=== PATIENT | female | born 1995 | race Caucasian/White ===

== ENCOUNTER 2024-11-13 12:00 | Emergency (ER) | payer BC, SELFPAY ==
[2024-11-13 12:23] VITALS: BP 156/100; PULSE 78; TEMP 37; O2SAT 97; BMI 36.5
--- NOTE | 2024-11-13 13:13 | CT_ITS ---
The [address] [address] Patient Name: ADELE ZAMBRANO MRN: [id number] date: 1995 Sex: F Assigned Patient Location: ER Current Patient Location: ER Accession/Order Number: [id number] Exam Date: 11/13/2024 13:47 Report Date: 11/13/2024 13:49 At the request of: BRO ZHANG NP Procedure: CT abdomen pelvis w con CT ABDOMEN AND PELVIS WITH INTRAVENOUS CONTRAST: CLINICAL HISTORY: epigastric pain COMPARISON: None TECHNIQUE: Spiral images were obtained through the abdomen and pelvis following the administration of intravenous contrast. This CT exam was performed using one or more following dose reduction techniques: Automated exposure control, adjustment of the mA and/or kV according to patient size, or use of iterative reconstruction technique. FINDINGS: Lung Bases: [Lung bases are clear.] Organs:Gallbladder wall thickening and question edema noted. Otherwise the adrenals, kidneys, pancreas, and spleen are unremarkable.[ GI: Mild retained stool. No bowel obstruction. Appendix unremarkable. Minimal background colonic diverticulosis.[ Pelvis:[Uterus unremarkable for age. No adnexal mass. Bladder is unremarkable.] Peritoneum/Retroperitoneum:No free air or free fluid. Aorta normal in caliber. Abd wall/Bones:Tiny fat-containing abdominal hernia. Osseous structures unremarkable. No suspicious osseous lesion.[ CT/CT abdomen pelvis w con IMPRESSION: CT findings worrisome for acute cholecystitis. Please correlate with exam findings. Impression dictated by: Zoran Franco M.D. 11/13/2024 1:49 PM Dictation Location: [place] [address] Electronically authenticated by: [id number] Y Date: 11/13/2024 13:49
--- NOTE | 2024-11-13 13:18 | ED_ITS ---
HPI HPI - General Adult General Chief complaint: Abdominal Pain Stated complaint: ABDOMINAL PAIN Time Seen by Provider: 11/13/24 12:26 Source: patient Mode of arrival: walk-in Limitations: no limitations History of Present Illness HPI narrative: The patient is a 29-year-old female who presents to the emergency department today for evaluation concerns for epigastric discomfort. She endorses this has been intermittently ongoing over the past 6 months and reports over the past few days it has been progressively worse. She denies any symptoms of nausea/vomiting. No diarrhea. She currently endorses her pain to be mild. She mention she has used an [id number] analgesics with minimal improvement. She has any urinary symptoms or back/flank pain. She mentions the symptoms are not associated with eating or after meals. She denies any chest pain or shortness of breath. She denies any significant medical or surgical history otherwise. Related Data Home Medications ?Medication ?Instructions ?Recorded ?Confirmed No Known Home Medications 11/13/2406/09 Allergies Allergy/AdvReac Type Severity Reaction Status Date / Time No Known Drug Allergies Allergy Verified 11/13/24 12:23 Review of Systems ROS Status of ROS 10 or more systems reviewed and unremark able except as noted in history and below PFSH PFSH Social History Little interest or pleasure in doing things: not at all Feeling down, depressed, or hopeless: not at all Exam Narrative Exam Narrative: Constituational: Awake/ alert, no apparent distress, well hydrated HENMT: normocephalic, external ears normal, moist oral mucous membranes and oropharynx normal Eyes: EOMI and conjunctivae normal Neck: ROM intact Chest: inspection of chest normal Respiratory: Normal respiratory effort, clear to auscultation bilaterally Cardio: regular rate and regular rhythm GI: + Discomfort to palpation over epigastric region, abdomen is otherwise soft to palpation and non-tender Back: nontender MSK: ROM intact, +NVI Skin: no rashes or petechiae Neuro: no focal deficits Psych: mental status grossly normal Constitutional Vital Signs, click to edit/add: Last Vital Signs Temp 98.6 F 11/13/24 12:23 Pulse 78 11/13/24 12:23 Resp 18 11/13/24 12:23 BP 156/100 H 11/13/24 12:23 Pulse Ox 97 11/13/24 12:23 O2 Del Method Room Air 11/13/24 12:23 Course Vital Signs Vital signs: Vital Signs Temperature 98.6 F 11/13/24 12:23 Pulse Rate 78 11/13/24 12:23 Respiratory Rate 18 11/13/24 12:23 Blood Pressure 156/100 H 11/13/24 12:23 Pulse Oximetry 97 11/13/24 12:23 Oxygen Delivery Method Room Air 11/13/24 12:23 Temperature 98.6 F 11/13/24 12:23 Pulse Rate 78 11/13/24 12:23 Respiratory Rate 18 11/13/24 12:23 Blood Pressure 156/100 H 11/13/24 12:23 Pulse Oximetry 97 11/13/24 12:23 Oxygen Delivery Method Room Air 11/13/24 12:23 Medical Decision Making MDM Narrative Medical decision making narrative: Patient is a well-appearing 29-year-old female who presented to the ER today for evaluation concerns for mostly epigastric discomfort. Initial examination and vital signs overall stable. No acute abdominal findings on exam. Leukocytosis, anemia, thrombocytopenia. Electrolytes including renal and hepatic function stable. Normal lipase. CT imaging does show acute cholecystitis. Measures of IVPB Zosyn. Initially patient's symptoms seemed to correlate more with possible GERD and she received a GI cocktail and on reevaluation she reported some mild improvement in overall condition. Patient was offered analgesic medication multiple times and declined as she mentioned her pain was not that significant. Did discuss patient's condition [id number] -> advised that if patient stable may consider discharge home and follow-up outpatient as there was no availability for transfer had surgery for today. In discussing this with the patient she was offered supportive measures for discharge home with Augmentin and Mason with close follow-up with general surgery outpatient to discuss cholecystectomy. Patient is concerned that this pain has been ongoing for the past 6 months and has not improved. She would like to be admitted to the hospital for further care. Did subsequently discuss patient's condition with general surgeon at [facility] Dr. Garcia [id number] -> patient is excepted for transfer. Discussed the above findings and recommendations with the patient. She did she is agreeable with the plan to transfer to [facility] by private vehicle for further care of the above. Medical Records Medical records reviewed: Yes I reviewed the patient's medical records Lab Data Lab results reviewed: Yes I reviewed the patient's lab results Labs: Lab Results 11/13/24 11/13/24 Range/Units 12:28 13:48 WBC 7.7 (4.0-11.0) 10^3/uL RBC 4.83 (4.20-5.40) 10^6/uL Hgb 14.4 (12.0-16.0) g/dL Hct 41.4 (36.0-48.0) % MCV 85.7 (81.0-99.0) fL MCH 29.8 (26.7-34.0) pg MCHC 34.8 (29.9-35.2) g/dL RDW 11.8 (11.0-15.0) % Plt Count 225 (150-450) 10^3/uL MPV 11.3 (9.5-13.5) fL Neut % (Auto) 69.9 (43.0-75.0) % Lymph % (Auto) 18.4 L (20.5-60.0) % [place] % (Auto) 9.3 (1.7-12.0) % Eos % (Auto) 1.3 (0.9-7.0) % Baso % (Auto) 0.8 (0.2-2.0) % Neut # (Auto) 5.4 (1.4-6.5) 10^3/uL Lymph # (Auto) 1.4 (1.2-3.8) 10^3/uL [place] # (Auto) 0.7 (0.3-0.8) 10^3/uL Eos # (Auto) 0.1 (0.0-0.7) 10^3/uL Baso # (Auto) 0.1 (0.0-0.1) 10^3/uL Abs Immat Gran (auto) 0.02 (0.00-0.03) 10^3/uL Imm/Tot Granulo (auto) 0.3 (0.0-0.5) % Sodium 137 (136-145) mmol/L Potassium 3.8 (3.5-5.1) mmol/L Chloride 102 (98-107) mmol/L Carbon Dioxide 26.0 (21.0-32.0) mmol/L Anion Gap 12.8 BUN 10.0 (7.0-18.0) mg/dL Creatinine 0.67 (0.55-1.02) mg/dL Est GFR ( Amer) >60 (>=60 mL/min/1.73m^2) Est GFR (Non-Af Amer) >60 (>=60 mL/min/1.73m^2) BUN/Creatinine Ratio 14.9 Glucose 85 (74-106) mg/dL Calcium 8.9 (8.5-10.1) mg/dL Total Bilirubin 0.8 (0.2-1.0) mg/dL AST 30 (15-37) U/L ALT 67 H (14-59) U/L Alkaline Phosphatase 86 (46-116) U/L Total Protein 7.2 (6.4-8.2) g/dL Albumin 3.4 (3.4-5.0) g/dL Globulin 3.8 g/dL Albumin/Globulin Ratio 0.9 Lipase 19.0 (16.0-77.0) U/L Serum HCG, Qual Negative (NEGATIVE) Imaging Data CT scan - abdomen: Attestation: I have reviewed the pertinent imaging results. Radiologist's impression: ITS Impressions Abdomen/Pelvis CT 11/13/24 13:13 IMPRESSION: CT findings worrisome for acute cholecystitis. Please correlate with exam findings. Impression dictated by: Zoran Franco M.D. 11/13/2024 1:49 PM Dictation Location: [place] [address] Electronically authenticated by: [id number] Y Date: 11/13/2024 13:49 Discharge Plan Discharge Chief Complaint: Abdominal Pain Clinical Impression: Acute cholecystitis Patient Disposition: [facility]
[2024-11-13 13:24] LABS: Hematocrit 41.4 % (36.0-48.0); Hemoglobin 14.4 g/dL (12.0-16.0); Immature Granulocytes Abs Auto 0.02 10^3/uL (0.00-0.03); Immature Granulocytes Pct Auto 0.3 % (0.0-0.5); Lymphocytes Absolute Auto 1.4 10^3/uL (1.2-3.8); Mean Corpuscular HGB Conc 34.8 g/dL (29.9-35.2); Mean Corpuscular Hemoglobin 29.8 pg (26.7-34.0); Mean Corpuscular Volume 85.7 fL (81.0-99.0); Platelet Count 225 10^3/uL (150-450); Red Blood Count 4.83 10^6/uL (4.20-5.40); White Blood Count 7.7 10^3/uL (4.0-11.0)
[2024-11-13] MEDS: lidocaine HCL 15 ML, MAG HYDROX/ALUMINUM HYD/SIMETH 30 ML, HYOSCYAMINE SULFATE 0.25 MG PO (13:49)
[2024-11-13 14:33] LABS: Alanine Aminotransferase 67 U/L (14-59); Albumin Globulin Ratio 0.9; Albumin Level 3.4 g/dL (3.4-5.0); Alkaline Phosphatase 86 U/L (46-116); Anion Gap 12.8; Aspartate Amino Transferase 30 U/L (15-37); Blood Urea Nitrogen 10.0 mg/dL (7.0-18.0); Calcium 8.9 mg/dL (8.5-10.1); Carbon Dioxide 26.0 mmol/L (21.0-32.0); Chloride 102 mmol/L (98-107); Estimated GFR (African America >60 (>=60 mL/min/1.73m^2); Estimated GFR (Non-African Ame >60 (>=60 mL/min/1.73m^2); Globulin 3.8 g/dL; Glucose 85 mg/dL (74-106); Lipase 19.0 U/L (16.0-77.0); Potassium 3.8 mmol/L (3.5-5.1); Sodium 137 mmol/L (136-145); Total Protein 7.2 g/dL (6.4-8.2)
[2024-11-13] MEDS: PIPERACILLIN SODIUM/TAZOBACTAM 3.375 GM in 0.9 % SODIUM CHLORIDE 50 ML IV (15:45)
--- NOTE | 2024-11-13 16:39 | PC.NURSE ---
phone report given to MICHELLE Carter.
== END 2024-11-13 16:33 | disposition short-term general hospital (02) ==
PROVIDERS: Emergency Provider Student in an Organized Health Care Education/Training Program
DX: K81.0 Acute cholecystitis (principal)
CPT/HCPCS: 36415; 74177; 80053; 83690; 84703; 85025; 96365; 99285; J2543; Q9967